=== PATIENT | male | born 1955 | race African-American/Black ===

== ENCOUNTER → 2017-10-17 | Outpatient (CLI) | payer OTHER ==
[2014-12-06 16:13] VITALS: BP 137/98
[~2017-10-17] MED LIST: AMLO5TAB2 PO; BUSP15TA PO; IOHEXOL 300 MG/ML 100ML VIAL. IV ONE; LISI10TA2 PO; QUET150T PO; SERT100T PO; TRAZ150T49 PO; TRIA1CAP3 PO
--- NOTE | 2017-10-17 17:00 | RAD ---
CT chest with contrast Indication: Right pulmonary lesion on x-ray Technique: CT chest with 75 mL of Omnipaque 300 with multiplanar reformats. Comparison: Study from 2013. Findings: Clear neck base. Heart is normal in size. No pericardial or pleural effusion. No axillary, mediastinal or hilar adenopathy. Minimal aortic arch calcifications. There is a 1.2 cm oval-shaped nodule in the right lower lobe. Severe right upper lobe emphysema. Moderate left upper lobe emphysema. Slight interval increase in the size of segment 7 lesion measuring 1.6 cm, previously 1.3 cm. Visualized sections through the spleen, adrenals, pancreas and kidneys are within normal limits. No suspicious bony lesions. Impression: 1. Solitary Right lower lobe pulmonary nodule. PET/CT or biopsy recommended for further evaluation. 2. Severe right and moderate left upper lobe emphysema. 3. Interval increase in the size of lesion in segment 7 of the liver when compared to previous study from 2013. Differential diagnosis is broad and includes primary liver lesion or metastasis. PQRS Compliance Statement: One or more of the following individualized dose reduction techniques were utilized for this examination: 1. Automated exposure control 2. Adjustment of the mA and/or kV according to patient size 3. Use of iterative reconstruction technique
== END | disposition home or self-care (01) ==
LOC: CT 13:57
PROVIDERS: ATTEND Family Medicine
DX: J43.9 Emphysema, unspecified (principal); R91.1 Solitary pulmonary nodule
CPT/HCPCS: 71260; Q9967

== ENCOUNTER → 2017-10-30 | Outpatient (CLI) | payer OTHER ==
[2014-12-06 16:13] VITALS: BP 137/98
[~2017-10-30] MED LIST changes: -IOHEXOL 300 MG/ML 100ML VIAL. IV ONE
--- NOTE | 2017-10-30 11:30 | RAD ---
Indication: Lung nodule, liver lesion, initial evaluation. Technique: PET/CT utilized 14.02 millicuries F-18 FDG IV. Patient's blood glucose level at the time of exam was [address] was obtained for attenuation correction and correlative purposes, is not intended for interpretation separate from the PET imaging. Comparison is made to a CT chest from October 17, 2017. One or more of the following individualized dose reduction techniques were utilized for this examination: 1. Automated exposure control 2. Adjustment of the mA and/or kV according to patient size 3. Use of iterative reconstruction technique Findings: Head and neck: There is no abnormal radiotracer accumulation in a pattern to suggest metastatic disease. Chest: The solitary right lower lobe pulmonary nodule is mildly PET avid with SUV max of 2.4. There is no PET avid hilar or mediastinal adenopathy. Abdomen/pelvis: There is misregistration of PET imaging on the CT imaging given movement between the 2 exams. There is no definite uptake beyond hepatic background within the posterior segment right hepatic lobe low-density lesion. No additional area of abnormal radiotracer accumulation within the abdomen or pelvis is apparent. Musculoskeletal: There is no radiotracer accumulation in a pattern to suggest metastatic disease. Non-PET findings: There is a retention cyst in the right maxillary sinus. There are subcentimeter submandibular lymph nodes and lymph nodes along the cervical chains, none of which were PET avid. There is atheromatous disease in the aorta. There is emphysema. The mildly PET avid nodule noted on prior study may have a cavitary component. Prostate is mildly enlarged. There are degenerative changes in the spine. Impression: 1. The right lung nodule demonstrates mild radiotracer accumulation, nonspecific given the small size. Neoplasm is still a possibility. Inflammatory or infectious nodule could also have similar degree of uptake. 3 month follow-up CT chest would be recommended. Please note that the nodule appears to have a small cavitary component. 2. The liver lesion is not clearly PET avid above background uptake within the liver. This liver lesion is low-density and was present back in 2012. It is favored to be a cyst. Ultrasound should be considered, although given location it may be difficult to clear all internal echoes and confirm simple cyst.
== END | disposition home or self-care (01) ==
LOC: PETSC 07:56
PROVIDERS: ATTEND Family Medicine
DX: K76.9 Liver disease, unspecified (principal); R91.1 Solitary pulmonary nodule; I70.0 Atherosclerosis of aorta
CPT/HCPCS: 78815; A9552

== ENCOUNTER 2017-11-07 08:15 | Outpatient (CLI) | payer OTHER ==
[2017-11-07] VITALS (17 sets, daily range): BP systolic 134–160; BP diastolic 83–93
[~2017-11-07] VITALS: Ht 180.3 cm; Wt 108.0 kg
[2017-11-07] MEDS ORDERED: PANT20TA3 PO (08:49)
[2017-11-07] MEDS ORDERED: CHOL10003 PO (08:49)
[2017-11-07] MEDS ORDERED: TRAM50TA PO (08:49)
[2017-11-07] MEDS ORDERED: FLUT1DIS3 IH (08:49)
[2017-11-07] MEDS ORDERED: CYAN10002 IM (08:49)
[2017-11-07] MEDS ORDERED: PROVENTIL HFA6.7 GM IH (08:49)
[2017-11-07] MEDS ORDERED: VENL75CA PO (08:49)
[2017-11-07] MEDS ORDERED: LOSA100T6 PO (08:49)
[2017-11-07] MEDS ORDERED: GABA-586 PO (08:49)
[2017-11-07] MEDS ORDERED: TIOT18CA IH (08:49)
[2017-11-07 09:05] LABS: INR 1.1 (0.8-1.1); PROTHROMBIN TIME PATIENT 13.4 SEC (11.7-14.0)
[2017-11-07] MEDS ORDERED: LIDOCAINE WITH 8.4% SOD BICARB 3 ML DISP.SYRIN. IJ ONE ×3 (10:07→11:00)
[2017-11-07] MEDS ORDERED: NALOXONE 0.4 MG/ML VIAL. ONE (10:13)
[2017-11-07] MEDS ORDERED: FLUMAZENIL 0.5 MG/5 ML VIAL. IV ONE (10:13)
[2017-11-07] MEDS ORDERED: MIDAZOLAM HCL/PF 2 MG/2 ML VIAL. ONE (10:13)
[2017-11-07] MEDS ORDERED: fentaNYL PF VIAL 100 MCG/2 ML VIAL ONE (10:13)
[2017-11-07] MEDS ORDERED: MIDAZOLAM HCL/PF 2 MG/2 ML VIAL. IV ONE (11:00)
[2017-11-07] MEDS ORDERED: fentaNYL PF VIAL 100 MCG/2 ML VIAL IV ONE (11:00)
--- NOTE | 2017-11-07 13:29 | RAD ---
Indication: Right lung biopsy. Time of exam 12:27 PM No significant right-sided pneumothorax is identified, status post right lung biopsy. There is some minimal density in the right base consistent with minimal parenchymal hemorrhage from biopsy. No other abnormalities are seen. No hemothorax is detected. Impression: No evidence of pneumothorax, status post right lung biopsy.
--- NOTE | 2017-11-07 17:09 | RAD ---
CT-guided biopsy, right lower lobe nodule 11/07/2017 Indication: Right lower lobe nodule Discussion: The risks and benefits of the procedure were discussed the patient. Informed consent was obtained. A timeout procedure was performed. The right posterior chest was prepped and draped using sterile barrier technique. All elements of maximal sterile barrier technique including the use of a cap, mask, sterile gown, sterile gloves, large sterile sheet, appropriate hand hygiene, and 2% chlorhexidine for cutaneous antisepsis (or acceptable alternative antiseptic per current guidelines) were followed for this procedure. CT imaging redemonstrates a small nodule in the subpleural posterior right lower lobe. Once an appropriate site for skin entry been selected 1% lidocaine without epinephrine was administered for local anesthesia. Under direct CT guidance a 17-gauge needle was advanced into the nodule. A single pass through the pleural was made. 2 x 18-gauge core biopsy samples were obtained. Repeat imaging was performed demonstrating a small pneumothorax. A biopsy tract through the nodule is seen. Pneumothorax was aspirated. The needle was removed. Manual pressure was held. Repeat imaging demonstrated only scant residual pneumothorax. The procedure was performed under conscious sedation including continuous cardiopulmonary monitoring via dedicated sedation nurse. Sedation time: 45 minutes Impression: 1. CT-guided biopsy, right lower lobe nodule 2. Small post biopsy pneumothorax, nearly completely aspirated. Follow-up chest x-ray ordered. PQRS Compliance Statement: One or more of the following individualized dose reduction techniques were utilized for this examination: 1. Automated exposure control 2. Adjustment of the mA and/or kV according to patient size 3. Use of iterative reconstruction technique
== END 2017-11-07 14:00 | disposition home or self-care (01) ==
LOC: INTRAD 08:15
PROVIDERS: ATTEND Family Medicine
DX: R91.1 Solitary pulmonary nodule (principal); Z79.01 Long term (current) use of anticoagulants; I10 Essential (primary) hypertension; F32.9 Major depressive disorder, single episode, unspecified; Z87.39 Personal history of other diseases of the musculoskeletal system and connective tissue; Z88.0 Allergy status to penicillin
CPT/HCPCS: 32405; 36415; 71010; 77012; 85610; J2250; J3010; 99152; 99153

== ENCOUNTER → 2017-12-05 | Outpatient (CLI) | payer OTHER ==
[~2017-12-05] MED LIST changes: -AMLO5TAB2 PO; -BUSP15TA PO; +GADOBUTROL 10 MMOL/10 ML VIAL IV; -LISI10TA2 PO; -QUET150T PO; -SERT100T PO; -TRAZ150T49 PO; -TRIA1CAP3 PO
== END | disposition home or self-care (01) ==
LOC: MRI 12:36
DX: I73.89 Other specified peripheral vascular diseases (principal); C34.91 Malignant neoplasm of unspecified part of right bronchus or lung; R90.82 White matter disease, unspecified; R42 Dizziness and giddiness
CPT/HCPCS: 70553